=== PATIENT | female | born 1990 | race Caucasian/White ===

== ENCOUNTER → 2016-06-11 | Outpatient (CLI) | payer BC ==
[~2016-06-11] MED LIST: FERR1TAB23 PO; PEDICHW34 PO; [UNRECOGNIZED DRUG - CODE] PO
[2016-06-11 18:03] LABS: URINE APPEARANCE CLEAR (CLEAR); URINE BILIRUBIN NEG (NEG); URINE COLOR YELLOW; URINE NITRITE NEG (NEG); URINE SPECIFIC GRAVITY 1.006 (1.000-1.030); UROBILINOGEN NEG (NEG)
[2016-06-11 18:08] LABS: MANUAL MICROSCOPIC REQUIRED? NO; REVIEW REQ? NO
== END | disposition home or self-care (01) ==
LOC: C.LABSPEC 17:30
PROVIDERS: ATTEND Obstetrics & Gynecology
DX: Z34.00 Encounter for supervision of normal first pregnancy, unspecified trimester (principal)

== ENCOUNTER → 2016-06-22 | Outpatient (CLI) | payer BC ==
[2016-06-26 01:40] LABS: CHLAMYDIA TRACH RNA*** NOT DETECTED (NOT DETECTED); GC (NEIS GONORRHOEAE)RNA** NOT DETECTED (NOT DETECTED)
== END | disposition home or self-care (01) ==
LOC: C.LABSPEC 17:14
PROVIDERS: ATTEND Obstetrics & Gynecology
DX: Z34.01 Encounter for supervision of normal first pregnancy, first trimester (principal)

== ENCOUNTER → 2016-06-22 | Outpatient (CLI) | payer BC ==
[2016-06-22 17:41] LABS: BASO % 0.2 %; BASO ABS # 0.01 K/uL (0-0.2); COMPLETE YES; EOS % 0.9 %; HEMATOCRIT 35.5 % (37-47); IG% 0.2 %; LYMPH % 22.5 %; LYMPH ABS # 1.48 K/uL (1.2-3.4); MEAN CELL VOLUME 96.2 fL (80-100); MEAN CORPUSCULAR HEMOGLOBIN 33.9 pg (25-34); MEAN CORPUSCULAR HGB CONC 35.2 g/dl (32-36); MEAN PLATELET VOLUME 11.2 fL (7.4-10.4); MONO % 9.4 %; NEUT % 66.8 %; PLATELET COUNT 203 K/uL (130-400); RED BLOOD COUNT 3.69 M/uL (4.2-5.4); WHITE BLOOD COUNT 6.58 K/uL (4.8-10.8)
== END | disposition home or self-care (01) ==
LOC: C.LAB1850 16:28
PROVIDERS: ATTEND Obstetrics & Gynecology
DX: Z34.01 Encounter for supervision of normal first pregnancy, first trimester (principal)

== ENCOUNTER → 2016-08-06 | Outpatient (CLI) | payer BC ==
[2016-08-06 18:49] LABS: GTGD 50 Grams
== END | disposition home or self-care (01) ==
LOC: C.LAB1850 15:47
PROVIDERS: ATTEND Obstetrics & Gynecology
DX: Z34.02 Encounter for supervision of normal first pregnancy, second trimester (principal)

== ENCOUNTER → 2016-10-22 | Outpatient (CLI) | payer BC ==
[2016-10-22 18:05] LABS: URINE APPEARANCE CLOUDY (CLEAR); URINE BILIRUBIN NEG (NEG); URINE COLOR YELLOW; URINE EPITHELIAL CELL AUTO >30 /lpf (0-5); URINE NITRITE NEG (NEG); URINE PH 7.5 (4.5-7.5); URINE SPECIFIC GRAVITY 1.018 (1.000-1.030); UROBILINOGEN NEG (NEG)
[2016-10-22 18:07] LABS: MANUAL MICROSCOPIC REQUIRED? NO; REVIEW REQ? NO
== END | disposition home or self-care (01) ==
LOC: C.LABSPEC 17:23
PROVIDERS: ATTEND Obstetrics & Gynecology
DX: Z34.02 Encounter for supervision of normal first pregnancy, second trimester (principal)

== ENCOUNTER → 2016-10-22 | Outpatient (CLI) | payer BC ==
[2016-10-22 17:35] LABS: HEMATOCRIT 31.8 % (37-47)
[2016-10-22 18:24] LABS: GTGD 50 Grams
== END | disposition home or self-care (01) ==
LOC: C.LAB1850 17:13
PROVIDERS: ATTEND Obstetrics & Gynecology
DX: Z34.02 Encounter for supervision of normal first pregnancy, second trimester (principal)

== ENCOUNTER → 2016-12-18 | Outpatient (CLI) | payer BC | END | disposition home or self-care (01) | LOC: C.LABSPEC 17:42 | PROVIDERS: ATTEND Obstetrics & Gynecology | DX: Z34.03 Encounter for supervision of normal first pregnancy, third trimester (principal) ==

== ENCOUNTER 2016-12-21 15:15 | Outpatient (CLI) | payer BC ==
[~2016-12-21] VITALS: Ht 172.7 cm; Wt 84.4 kg
[2016-12-21] MEDS ORDERED: TERBUTALINE SULFATE 1 MG/ML VIAL SQ PRN (16:30)
--- NOTE | 2016-12-21 16:36 | Progress Note ---
Progress Note Date of Service Dec 21, 2016. Progress Note Madeline Murphy presented for attempt of ECV. She had a reactive NST and was confirmed to be edinson breech on bedside US. Adequate fluid seen. Consent confirmed. Attempt for forward roll was tried but not successful. FHT rechecked and found to be normal. Second attempt of backward roll tried but again not successful. FHT rechecked and normal. Third attempt not made as there had been minimal movement if any, and chance of success seemed low, so patient and physician agree not to pursue another try. Scheduled for C/Section tentatively January 10, and will monitor 1hr prior to discharging home.
[2016-12-21 16:39] VITALS: Ht 172.7 cm; Wt 84.4 kg
[2016-12-21] MEDS ORDERED: PEDICHW34 PO (16:41)
[2016-12-21] MEDS ORDERED: FERR1TAB23 PO (16:41)
[2016-12-21] MEDS ORDERED: TERBUTALINE SULFATE 1 MG/ML VIAL ONE (17:48)
[2017-01-09] MEDS ORDERED: [UNRECOGNIZED DRUG - CODE] PO (14:45)
== END 2016-12-21 17:35 | disposition home or self-care (01) ==
LOC: C.OPB 15:15 → C.LD 15:15 → C.OPB 17:35
PROVIDERS: ATTEND Obstetrics & Gynecology
DX: O32.1XX0 Maternal care for breech presentation, not applicable or unspecified (principal); Z3A.00 Weeks of gestation of pregnancy not specified

== ENCOUNTER 2017-01-10 06:41 | Outpatient (CLI) | payer BC ==
[2017-01-09 14:33] VITALS: BMI 29.0
--- NOTE | 2017-01-09 15:08 | PAT Medication Instructions ---
Service Date Jan 09, 2017. Current Home Medication List Ferrous Sulfate (Iron), 1 TAB PO QPM Multivit/Min/Iron/Fol Ac/Pren ( 19), 1 TAB PO QAM Medication Instructions For Your Scheduled Surgery - Hold the following medications the morning of surgery: Multivit/Min/Iron/Fol Ac/Pren ( 19), 1 TAB PO QAM - Take the following medications as scheduled the night before surgery: Ferrous Sulfate (Iron), 1 TAB PO QPM If you have any questions please call us at [phone] or [phone] or [phone]
[2017-01-09 15:47] LABS: BASO % 0.1 %; BASO ABS # 0.01 K/uL (0-0.2); COMPLETE YES; EOS % 0.3 %; HEMATOCRIT 32.9 % (37-47); IG% 0.3 %; LYMPH % 12.5 %; LYMPH ABS # 1.19 K/uL (1.2-3.4); MEAN CELL VOLUME 101.2 fL (80-100); MEAN CORPUSCULAR HEMOGLOBIN 35.4 pg (25-34); MEAN PLATELET VOLUME 10.9 fL (7.4-10.4); MONO % 9.7 %; NEUT % 77.1 %; PLATELET COUNT 189 K/uL (130-400); RED BLOOD COUNT 3.25 M/uL (4.2-5.4); WHITE BLOOD COUNT 9.55 K/uL (4.8-10.8)
--- NOTE | 2017-01-09 19:30 | HISTORY & PHYSICAL EXAMINATION ---
DATE OF ADMISSION: 01/09/2017 CHIEF COMPLAINT: Planned section. HISTORY OF PRESENT ILLNESS: A 26-year-old 1, para 0, who presents at 39 and 4/7 weeks with plan for primary section tomorrow for breech presentation. The patient did try an external cephalic version that did fail. She has continued to be breech. She does want to proceed with a tomorrow as planned. She denies any vaginal bleeding, leaking or pain. She reports good movement. Her course has been complicated by breech presentation. LABS: Rh positive, rubella immune, GBS negative. OBSTETRICAL HISTORY: 1. GYNECOLOGIC HISTORY: Normal Pap smears. No STDs. ALLERGIES: AUGMENTIN CAUSES DIARRHEA AND VOMITING. BACTRIM CAUSES HIVES. MEDICATIONS: Gummy vitamin. SOCIAL HISTORY: No tobacco, alcohol or street drug use. FAMILY HISTORY: No congenital anomalies or mental retardation. REVIEW OF SYSTEMS: Ten systems are negative and within the record. PHYSICAL EXAMINATION: VITAL SIGNS: Height 5 foot 9 inches, weight 188 pounds, blood pressure 110/78. Urine dip negative for protein. GENERAL: She is a pleasant female, well-developed, well-nourished, in no acute distress. HEART: Regular rate and rhythm. LUNGS: Clear to auscultation bilaterally. ABDOMEN: Soft, gravid and nontender. Fetus in breech presentation by William's. heart tones 145. EXTREMITIES: Nontender calves. ASSESSMENT: 1. A 39+ week intrauterine . 2. Breech presentation. 3. Failed external cephalic version. PLAN: Admit to the hospital tomorrow for planned section. The patient is aware of her preop and postop instructions and course. She is aware of risks, alternatives and complications of the procedure and desires to proceed and a consent form is signed. She will present for her planned surgery in the morning.
[~2017-01-10] VITALS: Ht 172.7 cm; Wt 86.0 kg
[~2017-01-10 06:41] MED LIST changes: -PEDICHW34 PO
[2017-01-10 07:44] VITALS: Ht 172.7 cm; Wt 86.0 kg
[2017-01-10] MEDS ORDERED: LACTATED RINGER'S 1000ML 1,000 ML IV SCH (07:45)
[2017-01-10] MEDS ORDERED: CITRIC ACID/SODIUM CITRATE 15 ML UDC PO ONE (07:45)
[2017-01-10] MEDS ORDERED: CEFAZOLIN 2000 MG/60 ML D5W IV SCH (08:00)
[2017-01-10] MEDS ORDERED: OXYTOCIN INJ 10 UNITS/ML VIAL ONE (08:06)
[2017-01-10] MEDS ORDERED: MORPHINE SULFATE PF 2MG/2ML SYR ONE (08:07)
[2017-01-10] MEDS ORDERED: FENTANYL CITRATE INJ 50 MCG/1 ML 2 ML VIAL ONE (08:07)
[2017-01-10 08:24] LABS: BASO % 0.1 %; BASO ABS # 0.01 K/uL (0-0.2); COMPLETE YES; EOS % 0.6 %; HEMATOCRIT 32.3 % (37-47); IG% 0.4 %; LYMPH % 16.2 %; LYMPH ABS # 1.44 K/uL (1.2-3.4); MEAN CELL VOLUME 101.6 fL (80-100); MEAN CORPUSCULAR HGB CONC 33.4 g/dl (32-36); MEAN PLATELET VOLUME 10.9 fL (7.4-10.4); MONO % 9.8 %; NEUT % 72.9 %; PLATELET COUNT 181 K/uL (130-400); RED BLOOD COUNT 3.18 M/uL (4.2-5.4)
[2017-01-11] MEDS ORDERED: CEFAZOLIN IV 2,000 MG in DEXTROSE 5% 50ML 50 ML IV SCH (06:00)
== END 2017-01-10 09:30 | disposition home or self-care (01) ==
LOC: C.LD 06:41 → UNDOADMIN 06:41 → C.OPB 06:41 → EDSTATUS 08:30 → C.OPB 09:21
PROVIDERS: ATTEND Obstetrics & Gynecology
DX: O32.1XX0 Maternal care for breech presentation, not applicable or unspecified (principal); Z3A.39 39 weeks gestation of pregnancy

== ENCOUNTER 2017-01-18 08:43 | Inpatient (IN) | payer BC ==
[~2017-01-18] VITALS: Ht 172.7 cm; Wt 86.5 kg
[2017-01-18] MEDS ORDERED: LACTATED RINGER'S 1000ML 1,000 ML IV PRN (09:08)
[2017-01-18] MEDS ORDERED: LACTATED RINGER'S 1000ML 1,000 ML IV SCH (09:08)
[2017-01-18 09:39] LABS: HEMATOCRIT 35.9 % (37-47); MEAN CELL VOLUME 100.8 fL (80-100); MEAN CORPUSCULAR HEMOGLOBIN 34.3 pg (25-34); MEAN PLATELET VOLUME 10.7 fL (7.4-10.4); PLATELET COUNT 190 K/uL (130-400); RED BLOOD COUNT 3.56 M/uL (4.2-5.4)
[2017-01-18] MEDS ORDERED: FENTANYL 2MCG/ML ROPIV 1.25MG/ML 100ML BAG EPI ONE (09:40)
[2017-01-18] MEDS ORDERED: EpHEDrine SULFATE INJ 50 MG/ML AMP ONE (09:40)
[2017-01-18] MEDS ORDERED: BUPIVACAINE 0.25% 30 ML VIAL ONE ×2 (09:40→15:32)
[2017-01-18] MEDS ORDERED: FENTANYL CITRATE INJ 50 MCG/1 ML 2 ML VIAL ONE (09:41)
[2017-01-18] MEDS ORDERED: LIDOCAINE/EPINEPHRINE 1% 20 ML VIAL ONE (10:13)
[2017-01-18] MEDS ORDERED: LACTATED RINGER'S 1000ML 500 ML IV PRN ×2 (10:33→10:48)
[2017-01-18] MEDS ORDERED: OXYTOCIN 30 UNITS/500ML NSS IV PRN ×2 (10:45→18:15)
[2017-01-18] MEDS ORDERED: NALOXONE HCL INJ 1 MG in SODIUM CHLORIDE 0.9% 1000ML 1,000 ML IV PRN (10:48)
[2017-01-18] MEDS ORDERED: NALOXONE HCL INJ 0.4 MG/1 ML VIAL/CARP IV PRN (11:00)
[2017-01-18] MEDS ORDERED: DiphenhydrAMINE HCL 50 MG/ML VIAL IV PRN (11:00)
[2017-01-18] MEDS ORDERED: EpHEDrine SULFATE INJ 50 MG/ML AMP IV PRN (11:00)
[2017-01-18] MEDS ORDERED: ONDANSETRON INJ 2 MG/ML 2 ML VIAL IV PRN (11:00)
[2017-01-18] MEDS ORDERED: NALBUPHINE HCL INJ 10 MG/ML AMP IV PRN (11:00)
[2017-01-18 11:37] VITALS: Ht 172.7 cm; Wt 86.5 kg
[2017-01-18] MEDS: FENTANYL 2MCG/ML ROPIV 1.25MG/ML 100ML BAG EPI PRN ×2 (14:52→16:43)
[2017-01-18] MEDS ORDERED: DIPHTHERIA/TETANUS/PERTUSSIS 0.5 ML SYR/VIAL IM. ONE (18:15)
[2017-01-18] MEDS ORDERED: SUPERCREAM 0.870 % 15GM JAR EXT PRN (18:15)
[2017-01-18] MEDS ORDERED: LANOLIN OINT EXT PRN ×2 (18:15)
[2017-01-18] MEDS ORDERED: BENZOCAINE 20% AER SPR 82.5 GM CAN EXT PRN (18:15)
[2017-01-18] MEDS ORDERED: HYDROCORTISONE ACETATE 25 MG SUPP PR PRN (18:15)
--- NOTE | 2017-01-18 18:18 | Vaginal Delivery Summary ---
Vaginal Delivery Summary The patient dilated to complete and pushed to deliver a viable female infant Apgars 8 and 9 via over second-degree perineal laceration. Mouth and nose bulb suctioned at the perineum. Shoulders and body delivered with ease. Infant vigorous and cried at . Cord clamped at 30 seconds of life. Infant to maternal abdomen. Cord doubly clamped and then cut. Placenta delivered spontaneously and intact 3 vessel cord. Hemostasis achieved with dilute Pitocin and uterine massage. Bladder drained under sterile conditions for total of 225 cc. Cervix and sulci intact. Laceration repaired in the usual fashion with 3-0 Vicryl. Small separation of the right labia reapproximated with 3-0 Vicryl as well. EBL 300 cc's. Mother and baby stable in recovery.
[2017-01-18] MEDS: OXYTOCIN INJ 20 UNITS in LACTATED RINGER'S 1000ML 1,000 ML IV SCH (18:45)
--- NOTE | 2017-01-18 18:58 | Anesthesia Procedure Note ---
Anesthesia Epidural Removal Nt Date & Time Jan 18, 2017 at 18:57 Vital Signs Pain Intensity: 3.0 Notes Mental Status: alert / awake / arousable, participated in evaluation Nausea / Vomiting: adequately controlled Pain: adequately controlled Airway Patency, RR, SpO2: stable & adequate BP & HR: stable & adequate Hydration State: stable & adequate Neuraxial Anesthesia: was administered, sensory block is resolving Anesthetic Complications: no major complications apparent, pt satisfied with anesthetic care Epidural: removed without complications, with tip intact
[2017-01-18] MEDS: IBUPROFEN 600 MG TAB PO PRN (19:31)
[2017-01-18] MEDS: DOCUSATE SODIUM 100 MG CAP PO SCH (20:37)
[2017-01-18 20:45] VITALS: BP 123/67; PULSE 91; TEMP 37.1
[2017-01-18 23:45] VITALS: BP 116/70; PULSE 84; TEMP 37
[2017-01-19 02:24] VITALS: TEMP 36.7
[2017-01-19] MEDS: OXYTOCIN INJ 20 UNITS in LACTATED RINGER'S 1000ML 1,000 ML IV SCH (03:01)
[2017-01-19 03:30] VITALS: BP 110/67; PULSE 93; TEMP 36.7
--- NOTE | 2017-01-19 07:06 | Progress Note ---
Subjective Jan 19, 2017. Subjective conversation w/ patient, physical exam, chart review, lab review Ambulation: limited ambulation (to bathroom thus far) Voiding: no voiding problems Passing Gas: Yes Diet Tolerance: Regular Diet Lochia: Small Feeding Type: Breast Feeding (working on it) Pain: Denies much pain/cramping Comment: Found pt resting comfortably, denies any acute concerns. Review of Systems Constitutional: No fever, No chills Respiratory: No cough, No shortness of breath Cardiac: + edema, No chest pain Abdomen: No nausea, No vomiting, No diarrhea Female : No dysuria Objective Vital Signs Date Time Temp Pulse Resp B/P (MAP) Pulse Ox O2 Delivery O2 Flow Rate FiO2 01/19/17 03:30 36.7 93 18 110/67 (81) Room Air 01/19/17 02:24 36.7 01/18/17 23:45 Room Air 01/18/17 23:45 37.0 84 18 116/70 (85) Room Air 01/18/17 20:45 37.1 91 16 123/67 (85) Room Air 01/18/17 20:45 Room Air Physical Exam General Appearance: WELL-APPEARING, WD/WN, uncomfortable Respiratory/Chest: lungs clear, normal breath sounds, no respiratory distress Cardiovascular: regular rate, rhythm, no murmur Abdomen: normal bowel sounds, non tender, soft Fundus: Firm, Non-Tender, Relation to Umbilicus (at umbilicus) Extremities: normal range of motion, non-tender, no calf tenderness, + pedal edema (1+ bilaterally) Laboratory Results Last 24 Hours Test 01/18/17 09:22 White Blood Count 13.70 K/uL Red Blood Count 3.56 M/uL Hemoglobin 12.2 g/dL Hematocrit 35.9 % Mean Corpuscular Volume 100.8 fL Mean Corpuscular Hemoglobin 34.3 pg Mean Corpuscular Hemoglobin Concent 34.0 g/dl RDW Standard Deviation 47.3 fL RDW Coefficient of Variation 12.9 % Platelet Count 190 K/uL Mean Platelet Volume 10.7 fL Assessment and Plan Post- Day#: 1 Continue Routine Care: 26F s/p , now PPD #1. - Blood type O positive. GBS negative. Rubella immune. - Vital signs reviewed and stable. - Pain controlled with motrin. - Mild bilateral leg swelling and no tenderness on calf palpation. Encourage ambulation. - Encourage breast feeding. - Hemoglobin pre-delivery 12.2. Bleeding has improved. Continue to monitor clinically. - Continue routine post-vaginal delivery care. - Pt agreed with above plan, all current questions answered. Bart Joshi MD, PGY1 Pairer Inspector Physician Supervision Note: I was present with Dr. Joshi during the history and exam. I discussed the case with the resident and agree with the findings and plan as documented in the note. Any exceptions or clarifications are listed here: doing well. trying to breast feed, will have nursing provide more support. routine care. Documented By: Vaishnavi Cruz Resident Tracking Resident Involvement: Resident Care Provided Care Provided: OB Delivery (OB rounds)
[2017-01-19] MEDS: IBUPROFEN 600 MG TAB PO PRN ×2 (08:13→19:25)
[2017-01-19] MEDS: DOCUSATE SODIUM 100 MG CAP PO SCH ×2 (08:13→19:25)
[2017-01-19 08:15] VITALS: BP 103/65; PULSE 88; TEMP 36.8; O2SAT 99
[2017-01-19 11:45] VITALS: BP 94/61; PULSE 75; TEMP 36.7; O2SAT 99
[2017-01-19 15:05] VITALS: BP 111/64; PULSE 78; TEMP 36.8
[2017-01-19 23:52] VITALS: BP 115/70; PULSE 74; TEMP 36.3
[2017-01-20 07:18] VITALS: BP 106/71; PULSE 91; TEMP 36.7
--- NOTE | 2017-01-20 07:40 | Progress Note ---
Subjective Jan 20, 2017. Subjective conversation w/ patient, physical exam Ambulation: ambulating normally Voiding: no voiding problems Passing Gas: Yes Diet Tolerance: Regular Diet Lochia: Moderate Feeding Type: Breast Feeding Review of Systems Constitutional: No fever, No chills Respiratory: No cough Cardiac: No chest pain Abdomen: No nausea, No vomiting Objective Vital Signs Date Time Temp Pulse Resp B/P (MAP) Pulse Ox O2 Delivery O2 Flow Rate FiO2 01/20/17 07:18 36.7 91 18 106/71 (83) Room Air 01/19/17 23:53 Room Air 01/19/17 23:52 36.3 74 18 115/70 (85) Room Air 01/19/17 15:05 36.8 78 18 111/64 (80) Room Air 01/19/17 15:05 Room Air 01/19/17 11:45 36.7 75 18 94/61 (72) 99 Room Air 01/19/17 08:15 36.8 88 16 103/65 (78) 99 Room Air 01/19/17 08:15 99 Room Air Physical Exam General Appearance: WELL-APPEARING, NO APPARENT DISTRESS Respiratory/Chest: no respiratory distress, no accessory muscle use Cardiovascular: no edema Abdomen: non tender, soft Fundus: Firm Extremities: no calf tenderness Assessment and Plan Post- Day#: 2 Continue Routine Care: Recovered well from vaginal delivery, , eager for discharge. Instructions reviewed.
--- NOTE | 2017-01-20 07:41 | Discharge Instructions ---
Discharge Instructions Date of Service Jan 20, 2017. Admission Reason for Admission: Normal Labor Discharge Discharge Diagnosis / Problem: Vaginal delivery Discharge Goals Goal(s): Routine recovery after delivery Activity Recommendations Activity Limitations: resume your previous activity . Instructions / Follow-Up Instructions / Follow-Up ACTIVITY RECOMMENDATIONS: * Gradual return to full activity over the next 2-3 weeks. * No lifting - nothing heavier than baby over the next 2-3 weeks. * Do not engage in vigorous exercise, sexual activity or sports until cleared by your physician. * Do not drive or operate any motorized equipment until cleared by your physician. * You may shower/bathe daily. MEDICATIONS: For discomfort or pain, you may use Acetaminophen (Tylenol), Ibuprofen (Advil), or Naproxen (Aleve) following the package directions. For constipation you may use Colace following the package directions. BREAST CARE: If you are not breast feeding: * Wear a supportive bra 24 hours a day for one to two weeks. * Avoid stimulating your breasts and nipples as much as possible during the first few weeks after delivery. * When taking a shower, have the warm water hit your back, not breasts. * When your breasts feel full, apply ice packs. Usually three to four times a day helps ease the discomfort. * Take a mild pain medication (Tylenol / Motrin) when you are uncomfortable. If breast feeding: * Use breast milk to lubricate nipples. Lansinoh cream may be used for sore nipples. You do not need to remove cream prior to breast feeding. If using a different brand of cream, check the label for directions regarding removal of cream prior to nursing. * Wear a supportive bra. * If having problems with breasts or breast feeding, call a executive search consultant or your health care provider. EPISIOTOMY CARE: After delivery, if you have an episiotomy (stitches), the following steps will ease discomfort and aid healing. * For the first 24 hours after delivery, place ice packs next to your episiotomy to help reduce swelling. * After the first 24 hour-period, sitz baths, either portable or in the tub, are suggested. A shower with a shower arm sprayed over the episiotomy may be comforting. * Daniela care should be done after each voiding and bowel movement. Squirt warm water from a plastic bottle over the perineum (region of the body between the anus and urinary opening) and pat dry. * Use Dermoplast to ease discomfort. Shake container. [place] directly over the episiotomy. Place a Tucks on a clean sanitary pad next to your episiotomy. SPECIAL CARE INSTRUCTIONS: When you are discharged from the hospital, it is important for you to follow the instructions listed below: * During the first week at home, you should be able to care for yourself and your baby. In addition, the usual light household activities are encouraged. * Limit your activities to the way you feel. Do not try to clean the house or move furniture. Be sensible. * If you actively engage in sports and have done so up until the time of your delivery, you may resume these activities as soon as you feel able. This may take up to one month or even longer. Use good judgment. * Continue to take your vitamins for at least six weeks after the of your baby. * Your diet need not be limited unless you were on a special diet before your delivery. Breast-feeding mothers need around 2500 calories per day and at least 64-80 ounces of fluid per day (8 to 10 glasses). * You should eat foods from the four major food groups. Crash diets or fad diets are to be avoided. Eating lean meats, fresh fruits and vegetables, low-fat dairy products, high fiber foods and a regular exercise program, will help you get back to your pre- weight without putting your health at risk. * Constipation is sometimes a problem after delivery. Take a mild laxative as needed. If breast feeding, Milk of Magnesia is acceptable to use. You may use a suppository or Fleets enema if no episiotomy. * A daily shower or tub bath is suggested. Be sure to thoroughly and gently dry the perineum. * A bloody vaginal discharge will usually continue until around four weeks post . A small amount of bleeding may continue for as long as six weeks. Vaginal discharge changes from the bright red bleeding after delivery to pink then brownish and finally yellowish-pink before becoming white and disappearing. * Bleeding may increase with activity. Your first period may come in 4-8 weeks. If you are breast feeding, your period may be delayed even longer. * [address] (sex) can begin whenever both you and your partner feel comfortable and do not have any form of genital infection. It is recommended that you wait at least six weeks for internal and external healing to occur. If you have questions, please talk to your health care practitioner. A condom should be used to prevent infection and . * Foreplay, gentle intercourse and lubrication is very important the first several times to prevent pain. A water-based lubricant such as K-Y jelly or Astroglide may be used. * If you have RH negative blood and your baby is RH positive, you will receive RHOGAM by injection prior to discharge. The nurse will give you a card to keep with you that has the date and place that you received RHOGAM after delivery. * During your care, you had a Rubella screen done to check for the presence of rubella antibodies in your blood. If your test was negative, you will receive a Rubella vaccine prior to discharge. This vaccine may cause a fever, soreness at the injection site and flu-like symptoms. If these symptoms persist, notify your health care practitioner. is not advised for one month after a Rubella vaccine. * Verbalizes understanding of car seat law as reviewed with patient nursing. * Car Seat hand-out given and reviewed with patient by nursing. * Shaken baby information reviewed with patient by nursing. Call you doctor if: * Heavy bleeding (saturating several pads an hour) or passing clots the size of your fist. * A fever >101 degrees F (38.3 degrees C) on two occasions four hours apart and /or chills. * Unusual pain in the pelvic or vaginal areas. * "Baby Blues" lasting longer than two weeks. If you have any questions or concerns, call your health care practitioner at . FOLLOW UP VISIT: * Please call the office at to schedule a 6 week examination. It is important you keep this appointment. It is important for you to make arrangements for either yearly or twice yearly check-ups thereafter. Current Hospital Diet Patient's current hospital diet: Regular OB Diet Discharge Diet Recommended Diet: Regular Diet Pending Studies Studies pending at discharge: no Medical Emergencies . Who to Call and When: Medical Emergencies: If at any time you feel your situation is an emergency, please call 911 immediately. . Non-Emergent Contact Non-Emergency issues call your: Primary Care Provider . . "Provider Documentation" section prepared by Lyn Gutiérrez. . VTE Core Measure Inpt VTE Proph given/why not?: Treatment not indicated
[2017-01-20] MEDS: DOCUSATE SODIUM 100 MG CAP PO SCH (08:09)
[2017-01-20 10:30] VITALS: BP_DIAS 71; PULSE 91; TEMP 36.7
== END 2017-01-20 10:30 | disposition home or self-care (01) | DRG 775 ==
LOC: C.LD 08:43 → C.OPB 08:43 → C.LD 09:11 → C.OPB 09:11 → C.OBG 21:05
PROVIDERS: ADMIT Family Medicine; ATTEND Obstetrics & Gynecology
PROC: 10E0XZZ Delivery of Products of Conception, External Approach (ICD-10-PCS; principal; 2017-01-18)
PROC: 0HQ9XZZ Repair Perineum Skin, External Approach (ICD-10-PCS; principal; 2017-01-18)
DX: O48.0 Post-term pregnancy (principal); Z37.0 Single live birth; O70.1 Second degree perineal laceration during delivery; Z3A.40 40 weeks gestation of pregnancy